=== PATIENT | male | born 1960 | race African-American/Black ===

== ENCOUNTER 2025-02-09 16:02 | Outpatient (CLI) | payer OTHER | END 2025-02-09 16:03 | disposition home or self-care (01) | LOC: CSHCP 16:02 | PROVIDERS: ATTEND Internal Medicine Critical Care Medicine | DX: R06.09 Other forms of dyspnea (principal); J44.9 Chronic obstructive pulmonary disease, unspecified | CPT/HCPCS: 94060; 94664; 94726; 94729; 94760 ==